=== PATIENT | male | born 1990 | race Two or more races ===

== ENCOUNTER 2021-05-01 19:46 | Emergency (ER) | payer SELFPAY ==
[2021-05-01] MEDS ORDERED: Diphtheria,Pertussis(Acell),Tetanus Vaccine 0.5 ML Syringe IM ONE (20:16)
--- NOTE | 2021-05-01 20:16 | EDM.PDOC ---
ED HPI GENERAL MEDICAL PROBLEM - General Chief Complaint: Laceration Stated Complaint: LT POINTER FINGER LACERATION, SMASHED Time Seen by Provider: 05/01/21 20:04 Source of Information: Reports: Patient History Limitations: Reports: No Limitations - History of Present Illness INITIAL COMMENTS - FREE TEXT/NARRATIVE: HISTORY AND PHYSICAL: History of present illness: The patient is a 30-year-old male who presents to the emergency room with complaints of a left index finger laceration after getting his finger pinched between the forklift prongs and a palate. The patient did not take any medication prior to arrival. The patient did not do any treatment to the laceration prior to arrival. The patient is unsure when his last tetanus was. Patient denies any fever, chills, headache, change in vision, syncope or near syncope. Denies any chest pain, back pain, shortness of breath or cough. Denies any abdominal pain, nausea, vomiting, diarrhea, constipation or dysuria. Has not noted any blood in urine or stool. Patient has been eating and drinking appropriately. In the emergency department the patient is hemodynamically stable with a heart rate of 89 and a blood pressure of 148/96. The patient is afebrile with a temperature of 97.8. Patient is in no respiratory distress with a respiratory rate of 18 and SPO2 of 98% on room air. Review of systems: As per history of present illness and below otherwise all systems reviewed and negative. Past medical history: As per history of present illness and as reviewed below otherwise noncontributory. Surgical history: As per history of present illness and as reviewed below otherwise noncontributory. Social history: See social history for further information Family history: As per history of present illness and as reviewed below otherwise noncontributory. Physical exam: General: Well developed and well nourished. Alert and orientated x 3. Nontoxic in appearance and in no acute distress. Vital signs are stable and have been reviewed by me. Nursing notes were reviewed. HEENT: Atraumatic, normocephalic, pupils equal and reactive bilaterally, negative for conjunctival pallor or scleral icterus, mucous membranes moist, trachea midline. No drooling or trismus noted. No meningeal signs. No hot potato voice noted. Lungs: Normal work of breathing, no accessory muscles used. Skin: Intact, warm, dry. No lesions or rashes noted. Hematologic: No petechiae or purpra. Mucosa appropriate color and normal nail bed color and refill. Extremities: Atraumatic, moves all extremities per self without difficulty or deficits, negative for cords or calf pain. Neurovascular unremarkable. Neuro: Awake, alert, oriented. Cranial nerves II through XII unremarkable. Cerebellum unremarkable. Motor and sensory unremarkable throughout. Exam nonfocal. Psychiatric: Mood and affect are appropriate. Normal thought process. Answering questions appropriately. Notes: *This patient was seen and evaluated during the 2019 SARS-CoV-2 novel coronavirus pandemic period. Community viral transmission is ongoing at time of this encounter and the emergency department is operating under pandemic response procedures. As stated above the patient is a [id number]-year-old male who presents after getting his left index finger pinched between a forklift prong and a pallet. The patient is unsure of his tetanus. I have ordered a tetanus, and an x-ray. The left index finger xray is negative for a fracture. See procedure note. I have talked with the patient about today's findings, in addition to providing specific details for plan of care. Reassessment at the time of disposition demonstrates that the patient is in no acute distress. The patient is stable for discharge, counseling was provided and we discussed in great detail signs and symptoms that would prompt them to return to the Emergency Department. Medication, follow up and supportive care measures were reviewed and discussed. Voices understanding and is agreeable to plan of care. Denies any further questions or concerns at this time. Diagnostics: Left index finger x-ray Therapeutics: Tetanus, lidocaine 1% Impression: laceration Plan: 1. You were evaluated today on an emergent basis. Your left finger laceration was evaluated with an x-ray and no fracture was identified. Your finger was numbed with lidocaine 1% and then cleansed. Your finger laceration was then closed with sutures around your nailbed and on your finger pad. 2. Keep the area clean and dry. Continue to monitor for signs of infection. Sutures to be removed in 7-10 days. 3. Tylenol and/or ibuprofen as needed for pain management. 4. Please follow-up with your primary care provider in the next 1-2 days. Return to the ED as needed and as discussed. Definitive disposition and diagnosis as appropriate pending reevaluation and review of above. Right Finger-Index Pain Score (Numeric/FACES): 6 - Related Data Allergies Allergy/AdvReac Type Severity Reaction Status Date / Time No Known Allergies Allergy Verified 05/01/21 20:09 Home Meds: Home Meds . [No Known Home Meds] 05/01/21 [History] ED ROS GENERAL - Review of Systems Review Of Systems: Comprehensive ROS is negative, except as noted in HPI. ED EXAM, SKIN/RASH Exam: See Below (See dictation) ED SKIN PROCEDURES - Laceration/Wound Repair Left Anterior Distal Digit - 2nd (Index) Appearance: Subcutaneous Distal NVT: Neuro & Vascular Intact Anesthetic Type: Local Local Anesthesia - Lidocaine (Xylocaine): 1% Plain Local Anesthetic Volume: 5cc Skin Prep: Chlorhexidine (Hibiciens), Saline Saline Irrigation (cc's): 1,000 Exploration/Debridement/Repair: Wound Explored, In a Bloodless Field, Foreign Material Removed Closed with: Sutures Lac/Wound length In cm: 2.3 Suture Size: 3-0 # of Sutures: 5 Suture Type: Prolene Sterile Dressing Applied: Nurse Tetanus Status Addressed: Yes Complications: No Left Distal Ventral Digit - 2nd (Index) Appearance: Subcutaneous Distal NVT: Neuro & Vascular Intact Anesthetic Type: Local Local Anesthesia - Lidocaine (Xylocaine): 1% Plain Local Anesthetic Volume: 1cc Skin Prep: Chlorhexidine (Hibiciens), Sterile Drape Saline Irrigation (cc's): 200 Exploration/Debridement/Repair: Wound Explored, In a Bloodless Field, No Foreign Material Found Closed with: Sutures Lac/Wound length In cm: 1 Suture Size: 3-0 # of Sutures: 3 Suture Type: Prolene Sterile Dressing Applied: Nurse Tetanus Status Addressed: Yes Complications: No Course - Vital Signs Last Recorded V/S: Last Vital Signs Temp 97.8 F 05/01/21 20:05 Pulse 89 05/01/21 20:05 Resp 18 05/01/21 20:05 BP 148/96 H 05/01/21 20:05 Pulse Ox 98 05/01/21 20:05 - Orders/Labs/Meds Meds: Medications Discontinued Medications Generic Name Dose Route Start Last Admin Trade Name Freq PRN Reason Stop Dose Admin Diphtheria/Tetanus/Acell Pertussis 0.5 ml 05/01/21 20:16 05/01/21 21:22 Diphtheria,Pertussis(Acell),Tetanus Vaccine 0.5 Ml Syringe IM 05/01/21 20:17 0.5 ml .ONCE ONE Administration Lidocaine HCl 5 ml 05/01/21 20:12 05/01/21 21:23 Lidocaine 1% 5 Ml Sdv INJECT 05/01/21 20:13 5 ml ONETIME ONE Administration Departure - Departure Time of Disposition: 21:26 Disposition: Home, Self-Care 01 Condition: Good Clinical Impression: Finger laceration Qualifiers: Encounter type: initial encounter Finger: index finger Damage to nail status: without damage Foreign body presence: with foreign body Laterality: left Qualified Code(s): S61.221A - Laceration with foreign body of left index finger without damage to nail, initial encounter - Discharge Information *PRESCRIPTION DRUG MONITORING PROGRAM REVIEWED*: Not Applicable *COPY OF PRESCRIPTION DRUG MONITORING REPORT IN PATIENT ANGELITO: Not Applicable Instructions: Laceration Care, Adult Referrals: PCP,None [Primary Care Provider] - Forms: ED Department Discharge Additional Instructions: The following information is given to patients seen in the emergency department who are being discharged to home. This information is to outline your options for follow-up care. We provide all patients seen in our emergency department with a follow-up referral. The need for follow-up, as well as the timing and circumstances, are variable depending upon the specifics of your emergency department visit. If you don't have a primary care physician on staff, we will provide you with a referral. We always advise you to contact your personal physician following an emergency department visit to inform them of the circumstance of the visit and for follow-up with them and/or the need for any referrals to a consulting specialist. The emergency department will also refer you to a specialist when appropriate. This referral assures that you have the opportunity for follow-up care with a specialist. All of these measure are taken in an effort to provide you with optimal care, which includes your follow-up. Under all circumstances we always encourage you to contact your private physician who remains a resource for coordinating your care. When calling for follow-up care, please make the office aware that this follow-up is from your recent emergency room visit. If for any reason you are refused follow-up, please contact the [facility] Emergency Department at and asked to speak to the emergency department charge nurse. [facility] [address] [place] [id number] [facility] [address] [place] [address] Plan: 1. You were evaluated today on an emergent basis. Your left finger laceration was evaluated with an x-ray and no fracture was identified. Your finger was numbed with lidocaine 1% and then cleansed. Your finger laceration was then closed with sutures around your nailbed and on your finger pad. 2. Keep the area clean and dry. Continue to monitor for signs of infection. Sutures to be removed in 7-10 days. 3. Tylenol and/or ibuprofen as needed for pain management. 4. Please follow-up with your primary care provider in the next 1-2 days. Return to the ED as needed and as discussed.
--- NOTE | 2021-05-01 21:18 | CR ---
Indication: Crush injury. Technique: Three views of the left hand 2nd digit. Comparison: None Findings/Impression: No acute fracture or dislocation. Laceration is noted at the distal aspect of the 2nd digit, with extensive soft tissue swelling. Dictated by Aniket Lopez MD @ 05/01/2021 9:16:43 PM (Electronically Signed)
== END 2021-05-01 21:35 | disposition home or self-care (01) ==
LOC: MW.ED 19:46
DX: S61.221A Laceration with foreign body of left index finger without damage to nail, initial encounter (principal); Z23 Encounter for immunization; W23.0XXA Caught, crushed, jammed, or pinched between moving objects, initial encounter
CPT/HCPCS: 12002; 73140-26-F1; 73140-F1; 90471; 90715; 99283; 99283-25